=== PATIENT | male | born 1955 | race Caucasian/White ===

== ENCOUNTER → 2017-07-17 | Outpatient (CLI) | payer BC ==
[~2017-07-17] MED LIST: ACT15 PO; AMR2 PO; BYTI10 SQ; GLC500 PO; HYDC25 PO; LISI-461 PO; METH10TA4 PO; MULT-506 PO; SIMV20TA2 PO
--- NOTE | 2017-07-17 22:58 | Exercise Stress Test Report ---
Exercise Stress Test Report Exercise Stress Test Report Date of Service: 07/17/2017 Exercise Stress Test Report Procedure: Exercise stress ECG (treadmill) Indication: Chest pain Protocol: Standard John Resting ECG: Sinus rhythm 80 bpm. Exercise ECG: No significant ST changes. No arrhythmia. Peak heart rate 179 bpm Maximum predicted heart rate: 111% Resting blood pressure: 130/86mmHg Maximum blood pressure: 177/80mmHg Exercise: Patient exercised for a total of 4 minutes and 2 seconds on standard John protocol, attaining 5.8 METS. Exercise was terminated secondary to fatigue. No chest pain or shortness of breath reported. Impression: 1. Negative exercise ECG for ischemia at 111% MPHR. 2. No arrhythmia. 3. No chest pain reported. 4. Exercise terminated secondary to fatigue. 5. Appropriate blood pressure response to exercise. 6. Below average exercise tolerance.
== END | disposition home or self-care (01) ==
LOC: C.CPL 09:37
PROVIDERS: ATTEND Family Medicine
DX: R07.9 Chest pain, unspecified (principal)